=== PATIENT | male | born 1940 | race African-American/Black ===

== ENCOUNTER 2017-12-03 07:37 | Emergency (ER) | payer OTHER ==
[~2017-12-03] VITALS: Ht 182.9 cm; Wt 111.0 kg
[2017-12-03 07:56] VITALS: BP 171/74
[2017-12-03] MEDS ORDERED: KETOROLAC 60MG/2ML VIAL IM ONE (08:30)
== END 2017-12-03 09:19 | disposition home or self-care (01) ==
LOC: ER 08:50
DX: M54.42 Lumbago with sciatica, left side (principal); E11.9 Type 2 diabetes mellitus without complications; I10 Essential (primary) hypertension; W01.0XXA Fall on same level from slipping, tripping and stumbling without subsequent striking against object, initial encounter; Y93.89 Activity, other specified; Y92.89 Other specified places as the place of occurrence of the external cause; Y99.8 Other external cause status
CPT/HCPCS: 96372; 99283; J1885

== ENCOUNTER 2021-11-21 03:56 | Emergency (ER) | payer OTHER ==
[~2021-11-21] VITALS: Ht 182.9 cm; Wt 90.0 kg
[2021-11-21] MEDS ORDERED: OXYCODONE HCL/ACETAMINOPHEN 5/325MG TABLET PO ONE (06:45)
[2021-11-21 07:15] VITALS: BP 146/74
[2021-11-21 07:38] LABS: BASOPHILS % 0.6 % (0.0-2.0); EOSINOPHILS % 0.5 % (0.0-5.0); HEMATOCRIT. 49.9 % (42.0-52.0); HEMOGLOBIN. 16.4 g/dL (14.0-18.0); LYMPHOCYTES % 28.4 % (20.0-50.0); MEAN CORPUSCULAR HEMOGLOBIN 27.5 pg (28.0-32.0); MONOCYTES % 5.9 % (2.0-8.0); NEUTROPHILS % 64.6 % (40.0-76.0); RED BLOOD CELL COUNT 5.94 mill/uL (4.7-6.1); RED CELL DISTRIBUTION WIDTH 14.2 % (11.6-14.6)
[2021-11-21 07:44] LABS: CHLORIDE 108 mEq/L (98-107)
[2021-11-21 08:10] LABS: PLATELET 293 x1000/uL (130-400)
[2021-11-21] MEDS ORDERED: ASPIRIN 325MG EC TABLET PO ONE (10:45)
[2021-11-21] MEDS ORDERED: POTASSIUM CHLORIDE 20MEQ TABLET SR PO ONE (13:30)
== END 2021-11-21 14:35 | disposition short-term general hospital (02) ==
LOC: ER 03:56
DX: R06.02 Shortness of breath (principal); E11.9 Type 2 diabetes mellitus without complications; I10 Essential (primary) hypertension; Z86.73 Personal history of transient ischemic attack (TIA), and cerebral infarction without residual deficits; Z20.822 Contact with and (suspected) exposure to COVID-19
CPT/HCPCS: 36415; 71045; 80053; 82962; 83880; 84484; 85025; 87426; 93005; 99285; C9803

== ENCOUNTER 2023-11-12 05:03 | Inpatient (IN) | payer MEDICARE, OTHER ==
[~2023-11-12] VITALS: Ht 172.7 cm; Wt 71.9 kg
[2023-11-12 06:42] LABS: HEMATOCRIT. 42.7 % (42.0-52.0); HEMOGLOBIN. 12.6 g/dL (14.0-18.0); MEAN CORPUSCULAR HGB CONC 29.4 g/dL (31.0-37.0); MEAN CORPUSCULAR VOLUME 91.9 fL (80.0-94.0); MEAN PLATELET VOLUME 8.5 fl (7.4-10.4); PLATELET 422 x1000/uL (130-400); RED BLOOD CELL COUNT 4.65 mill/uL (4.7-6.1); RED CELL DISTRIBUTION WIDTH 17.9 % (11.6-14.6); WHITE BLOOD COUNT 14.5 x1000/uL (4.5-11.0)
[2023-11-12 06:56] LABS: CHLORIDE 107 mEq/L (98-107); POTASSIUM 4.1 mEq/L (3.5-5.1); SODIUM 147 mEq/L (136-145)
[2023-11-12 06:57] LABS: CALCIUM 9.7 mg/dL (8.7-10.4); CARBON DIOXIDE 18 mEq/L (21-32)
[2023-11-12 07:02] LABS: CREATININE 1.3 mg/dL (0.6-1.3); GLUCOSE 173 mg/dL (70-105); UREA NITROGEN BLOOD 21 mg/dL (9-23)
[2023-11-12] MEDS: SODIUM CHLORIDE 0.9% 1000ML BAG (SEPSIS BOLUS) IV ONE (07:03)
[2023-11-12 07:04] LABS: ALANINE AMINOTRANSFERASE 12 IU/L (10-49); ALBUMIN 3.9 g/dL (3.2-4.8); ASPARTATE AMINOTRANSFERASE 14 IU/L (<34); BILIRUBIN DIRECT 0.2 mg/dL (<=3.0); BILIRUBIN TOTAL 0.6 mg/dL (0.1-1.0); PROTEIN TOTAL 7.2 g/dL (6.0-8.3)
[2023-11-12 07:05] LABS: DIFFERENTIAL COMMENT 1
[2023-11-12] MEDS: PIPERACILLIN/TAZO 3.375G/50ML 50 ML IV STA (07:10)
[2023-11-12 07:19] LABS: TROPONIN I HIGH SENSITIVITY 59 ng/L (3.0-53)
[2023-11-12 07:20] LABS: PROTHROMBIN TIME 10.9 sec (9.6-11.0)
[2023-11-12 08:21] LABS: ANISOCYTOSIS 1+; PLATELET ESTIMATE INCREASED
[2023-11-12 08:27] LABS: CLARITY URINE TURBID (CLEAR); COLOR URINE YELLOW (YELLOW); GLUCOSE URINE 3+ (NEGATIVE); KETONES URINE 1+ (NEGATIVE); LEUKOCYTE ESTERASE URINE 2+ (NEGATIVE); NITRITE URINE NEGATIVE (NEGATIVE); OCCULT BLOOD URINE 3+ (NEGATIVE); PH URINE 5.5 (4.5-8.0); PROTEIN URINE 3+ (NEGATIVE); SPECIFIC GRAVITY URINE 1.025 (1.005-1.030); UROBILINOGEN URINE 0.2 E.U./dL (0.2-1.0)
[2023-11-12 09:09] LABS: WBC URINE TNTC /hpf (0-2)
[2023-11-12 09:10] LABS: SQUAMOUS EPITHELIAL CELL URINE NONE SEEN /lpf (RARE/1+)
[2023-11-12 09:11] LABS: BACTERIA URINE 3+; RBC URINE 0-2 /hpf (0-2); YEAST URINE 4+
[2023-11-12] MEDS ORDERED: CEFP200T13 MT (11:40)
[2023-11-12] MEDS ORDERED: DOXY100C5 MT (11:40)
[2023-11-12] MEDS ORDERED: ACETAMINOPHEN 325MG TABLET PO PRN (12:15)
[2023-11-12] MEDS ORDERED: ONDANSETRON HCL 4MG/2ML INJ IV PRN (12:15)
[2023-11-12] MEDS ORDERED: MAGNESIUM/ALUMINUM HYDROXIDE/SIMETHICONE 30ML UDC PO PRN (12:15)
[2023-11-12] MEDS ORDERED: DOCUSATE SODIUM 100MG CAPSULE PO PRN (12:15)
[2023-11-12] MEDS ORDERED: DEXTROSE 50% WATER 50ML SYRINGE IV PRN ×2 (12:15→18:00)
[2023-11-12] MEDS ORDERED: IPRATROPIUM/ALBUTEROL 0.5-3(2.5)MG/3ML NEB HHN PRN (12:15)
[2023-11-12] MEDS ORDERED: GUAIFENESIN 200MG/10ML SUGAR FREE UDC PO PRN (12:15)
[2023-11-12] MEDS ORDERED: ENOXAPARIN 40MG/0.4ML SYR SUBCUT SCH (13:00)
[2023-11-12] MEDS ORDERED: ATOR40TA70 (13:07)
[2023-11-12] MEDS ORDERED: ASPI-1406 (13:07)
[2023-11-12] MEDS ORDERED: AMLO10TA80 (13:07)
[2023-11-12 13:10] LABS: BG BASE EXCESS -6.7 mmol/L (-2.0-2.0); BG CARBOXYHEMOGLOBIN 0.4 % (0.5-1.5); BG FRACTION INSPIRED OXYGEN 34; BG HCO3 ACT 16.1 mmol/L (22.0-26.0); BG METHEMOGLOBIN 0.1 % (0.0-1.5); BG OXYHEMOGLOBIN 95.5 % (94.0-97.0); BG PCO2 25.7 mmHg (35.0-45.0); BG PH 7.416 (7.350-7.450); BG PO2 82.3 mmHg (75.0-100.0); BG SAMPLE SITE RIGHT RADIAL; BG TOTAL HEMOGLOBIN 13.2 g/dL (12.0-18.0); BG VENT MODE NASAL CANNULA
[2023-11-12] MEDS ORDERED: NALOXONE HCL 0.4MG/ML VIAL IV PRN (14:00)
[2023-11-12] MEDS: FLUCONAZOLE 200 MG/100ML BAG 100 ML IV NR (14:12)
[2023-11-12] MEDS: PANTOPRAZOLE SODIUM 40 MG/VIAL IV SCH (14:12)
[2023-11-12] MEDS: DEXT 5%/0.45% NACL 1000ML 1,000 ML IV ONE (14:12)
[2023-11-12] MEDS: ASPIRIN 81MG EC TABLET PO NR (14:29)
[2023-11-12] MEDS: ENOXAPARIN 80MG/0.8ML SYR SUBCUT SCH (14:29)
[2023-11-12] MEDS: VANCOMYCIN 1.5GM/250ML IV NR (16:01)
[2023-11-12] MEDS: PIPERACILLIN/TAZO 3.375G/50ML 50 ML IV SCH (16:31)
[2023-11-12] MEDS: SODIUM CHLORIDE 0.45% 1,000 ML IV SCH (16:31)
[2023-11-12 16:39] LABS: CHLORIDE 108 mEq/L (98-107); POTASSIUM 4.3 mEq/L (3.5-5.1); SODIUM 149 mEq/L (136-145)
[2023-11-12 16:40] LABS: CALCIUM 9.8 mg/dL (8.7-10.4); CARBON DIOXIDE 18 mEq/L (21-32)
[2023-11-12 16:45] LABS: CREATININE 1.2 mg/dL (0.6-1.3); GLUCOSE 213 mg/dL (70-105); UREA NITROGEN BLOOD 22 mg/dL (9-23)
[2023-11-12 16:47] LABS: CREATINE KINASE 43 IU/L (46-171)
[2023-11-12 16:53] LABS: BETA HYDROXYBUTYRATE 9.7 mMol/L (0.0-0.3)
[2023-11-12 16:59] LABS: TROPONIN I HIGH SENSITIVITY 67 ng/L (3.0-53)
[2023-11-12] MEDS ORDERED: SODIUM CHLORIDE 0.45% 1,000 ML IV SCH (18:00)
[2023-11-12] MEDS ORDERED: KCL 20MEQ/100ML PREMIX 100 ML IV PRN (18:00)
[2023-11-12] MEDS ORDERED: BLOOD SUGAR DIAGNOSTIC STRIP TEST PRN (18:00)
[2023-11-12] MEDS ORDERED: INSULIN LISPRO 100 UNITS/ML SUBCUT SCH (18:00)
[2023-11-12] MEDS ORDERED: POTASSIUM CHLORIDE 40 MEQ in SODIUM CHLORIDE 0.9% 230 ML IV PRN (18:00)
[2023-11-12] MEDS ORDERED: INSULIN REGULAR (HUMULIN R) 1000UNITS/10ML VIAL IV NR (18:00)
[2023-11-12] MEDS: METOPROLOL TARTRATE 25MG TABLET PO SCH (19:42)
[2023-11-12] MEDS: ATORVASTATIN CALCIUM 40MG TABLET PEG NR (19:42)
[2023-11-12 21:00] VITALS: BP 156/64; PULSE 75; RESP 17; TEMP 98.1
[2023-11-12] MEDS: BLOOD SUGAR DIAGNOSTIC STRIP TEST SCH (21:04)
[2023-11-12] MEDS: DEXT 5%/0.9% NACL 1,000 ML IV SCH (21:28)
[2023-11-12] MEDS: INSULIN REGULAR 100U/100ML PMX 100 ML IV SCH (21:28)
[2023-11-12 22:00] VITALS: BP 147/67; PULSE 89; RESP 20
[2023-11-12 22:21] LABS: CARBON DIOXIDE 17 mEq/L (21-32); CHLORIDE 109 mEq/L (98-107); POTASSIUM 4.1 mEq/L (3.5-5.1); SODIUM 148 mEq/L (136-145)
[2023-11-12 22:22] LABS: CALCIUM 9.7 mg/dL (8.7-10.4)
[2023-11-12 22:27] LABS: CREATININE 1.2 mg/dL (0.6-1.3); GLUCOSE 208 mg/dL (70-105); UREA NITROGEN BLOOD 21 mg/dL (9-23)
[2023-11-12 22:29] LABS: CREATINE KINASE 200 IU/L (46-171); PHOSPHORUS 3.6 mg/dL (2.5-4.9)
[2023-11-12 22:34] LABS: TROPONIN I HIGH SENSITIVITY 73 ng/L (3.0-53)
[2023-11-12 22:58] LABS: *AMPHETAMINES SCREEN URINE NEGATIVE (NEGATIVE)
[2023-11-12 22:59] LABS: *BARBITURATES SCREEN URINE NEGATIVE (NEGATIVE); *BENZODIAZEPINES SCREEN URINE NEGATIVE (NEGATIVE); *COCAINE SCREEN URINE NEGATIVE (NEGATIVE); CANNABINOID URINE SCREEN NEGATIVE (NEGATIVE); ECSTASY MDMA SCREEN URINE NEGATIVE (NEGATIVE); METHADONE URINE SCREEN NEGATIVE (NEGATIVE); OPIATES URINE SCREEN PRESUMPTIVE POSITIVE (NEGATIVE); PHENCYCLIDINE URINE SCREEN NEGATIVE (NEGATIVE)
[2023-11-12 23:00] VITALS: BP 146/59; PULSE 94; RESP 18
[2023-11-13] VITALS (33 sets, daily range): BP systolic 104–156; BP diastolic 44–76; PULSE 75–113; RESP 17–26; TEMP 97.6–98.4
[2023-11-13 02:52] LABS: CHLORIDE 114 mEq/L (98-107); POTASSIUM 3.1 mEq/L (3.5-5.1); SODIUM 151 mEq/L (136-145)
[2023-11-13 02:53] LABS: CARBON DIOXIDE 23 mEq/L (21-32)
[2023-11-13 03:00] LABS: PHOSPHORUS 1.9 mg/dL (2.5-4.9)
[2023-11-13] MEDS: POTASSIUM CHLORIDE 40 MEQ in DEXT 5% WATER 230 ML IV PRN (04:05)
[2023-11-13] MEDS: SODIUM PHOSPHATE 15 MMOL in SODIUM CHLORIDE 0.9% 245 ML IV PRN (04:34)
[2023-11-13] MEDS ORDERED: METOPROLOL TARTRATE 5MG/5ML VIAL IV PRN (08:30)
[2023-11-13 10:06] LABS: CARBON DIOXIDE 23 mEq/L (21-32); CHLORIDE 114 mEq/L (98-107); POTASSIUM 3.5 mEq/L (3.5-5.1); SODIUM 151 mEq/L (136-145)
[2023-11-13 10:07] LABS: CALCIUM 8.9 mg/dL (8.7-10.4)
[2023-11-13 10:11] LABS: CREATININE 1.2 mg/dL (0.6-1.3); GLUCOSE 176 mg/dL (70-105)
[2023-11-13 10:12] LABS: LDL CHOLESTEROL 47 mg/dL (5-100); TRIGLYCERIDE 103 mg/dL (0-150); UREA NITROGEN BLOOD 19 mg/dL (9-23)
[2023-11-13 10:13] LABS: CHOLESTEROL 135 mg/dL (<200); HDL CHOLESTEROL 54 mg/dL (>55)
[2023-11-13 10:14] LABS: PHOSPHORUS 2.6 mg/dL (2.5-4.9)
[2023-11-13] MEDS: DEXT 5%/0.45% NACL 1000ML 1,000 ML IV SCH (12:30)
[2023-11-13 12:44] LABS: CHLORIDE 114 mEq/L (98-107); POTASSIUM 4.1 mEq/L (3.5-5.1); SODIUM 150 mEq/L (136-145)
[2023-11-13 12:45] LABS: CALCIUM 8.5 mg/dL (8.7-10.4); CARBON DIOXIDE 24 mEq/L (21-32)
[2023-11-13 12:50] LABS: CREATININE 1.2 mg/dL (0.6-1.3); GLUCOSE 187 mg/dL (70-105); UREA NITROGEN BLOOD 20 mg/dL (9-23)
[2023-11-13 12:52] LABS: PHOSPHORUS 3.2 mg/dL (2.5-4.9)
[2023-11-13] MEDS ORDERED: DEXTROSE 50% WATER 50ML SYRINGE IV PRN (14:15)
[2023-11-13] MEDS: MAGNESIUM 2 G PREMIX 50 ML IV PRN (14:18)
[2023-11-13] MEDS: INSULIN GLARGINE 100 UNITS/ML SUBCUT NR (14:20)
[2023-11-13] MEDS: MAGNESIUM 1 G PREMIX 100 ML IV NR (14:26)
[2023-11-13] MEDS ORDERED: MORPHINE SULFATE 10MG/5ML ORAL SOLN UDC PO PRN (15:30)
[2023-11-13] MEDS ORDERED: LORAZEPAM 0.5MG TABLET PO PRN (15:30)
[2023-11-13] MEDS: VANCOMYCIN 1GM/200ML PMX (BAXTER) IV SCH (16:00)
[2023-11-13] MEDS: BLOOD SUGAR DIAGNOSTIC STRIP TEST SCH ×4 (17:19→21:04)
[2023-11-13] MEDS: INSULIN LISPRO 100 UNITS/ML SUBCUT SCH (17:34)
[2023-11-13 18:26] LABS: ALBUMIN 3.1 g/dL (3.2-4.8)
[2023-11-13 18:47] LABS: PREALBUMIN < 5.0 mg/dl (10.0-40.0)
[2023-11-13] MEDS: INSULIN GLARGINE 100 UNITS/ML SUBCUT SCH (21:11)
[2023-11-14] VITALS (37 sets, daily range): BP systolic 97–143; BP diastolic 48–120; PULSE 78–110; RESP 11–27; TEMP 97.8–99.3; O2SAT 95
[2023-11-14 05:45] LABS: HEMATOCRIT 35.1 % (42.0-52.0); HEMOGLOBIN 10.7 g/dL (14.0-18.0); MEAN CORPUSCULAR HGB CONC 30.6 g/dL (31.0-37.0); MEAN CORPUSCULAR VOLUME 88.1 fL (80.0-94.0); PLATELET 326 x1000/uL (130-400); RED BLOOD CELL COUNT 3.98 mill/uL (4.7-6.1); RED CELL DISTRIBUTION WIDTH 17.8 % (11.6-14.6); WHITE BLOOD COUNT 19.1 x1000/uL (4.5-11.0)
[2023-11-14 05:51] LABS: CHLORIDE 113 mEq/L (98-107); POTASSIUM 4.5 mEq/L (3.5-5.1); SODIUM 150 mEq/L (136-145)
[2023-11-14 05:52] LABS: CALCIUM 8.7 mg/dL (8.7-10.4); CARBON DIOXIDE 25 mEq/L (21-32)
[2023-11-14 05:57] LABS: CREATININE 1.1 mg/dL (0.6-1.3); GLUCOSE 129 mg/dL (70-105); UREA NITROGEN BLOOD 18 mg/dL (9-23)
[2023-11-14 05:59] LABS: PHOSPHORUS 2.2 mg/dL (2.5-4.9)
[2023-11-14] MEDS ORDERED: POTASSIUM PHOSPHATE 15 MMOL in DEXT 5% WATER 245 ML IV ONE (08:00)
[2023-11-14] MEDS: LIDOCAINE 5% PATCH TOP SCH (08:40)
[2023-11-14] MEDS: PREDNISONE 10MG TABLET PO SCH (08:40)
[2023-11-14] MEDS: AMLODIPINE 10MG TABLET PO SCH (08:41)
[2023-11-14] MEDS: POTASSIUM PHOSPHATE 15 MMOL in DEXT 5% WATER 245 ML IV NR (10:53)
[2023-11-14] MEDS: OXYCODONE HCL/ACETAMINOPHEN 5/325MG TABLET PO PRN (13:15)
[2023-11-14] MEDS: SODIUM HYPOCHLORITE 0.125% 473ML SOLUTION TOP SCH (15:11)
[2023-11-14] MEDS: IPRATROPIUM/ALBUTEROL 0.5-3(2.5)MG/3ML NEB HHN SCH (21:05)
[2023-11-15] VITALS (34 sets, daily range): BP systolic 110–160; BP diastolic 54–88; PULSE 74–112; RESP 11–29; TEMP 97.4–98.6; O2SAT 95–99
[2023-11-15] MEDS: ACETYLCYSTEINE 200MG/ML 20% VIAL 4ML INH SCH (00:35)
[2023-11-15 07:55] LABS: CHLORIDE 113 mEq/L (98-107); POTASSIUM 3.3 mEq/L (3.5-5.1); SODIUM 147 mEq/L (136-145)
[2023-11-15 07:56] LABS: BASOPHILS % 0.3 % (0.0-2.0); CALCIUM 8.4 mg/dL (8.7-10.4); CARBON DIOXIDE 26 mEq/L (21-32); HEMATOCRIT. 32.5 % (42.0-52.0); MEAN CORPUSCULAR HEMOGLOBIN 26.5 pg (28.0-32.0); MEAN CORPUSCULAR HGB CONC 30.6 g/dL (31.0-37.0); MEAN CORPUSCULAR VOLUME 86.5 fL (80.0-94.0); MEAN PLATELET VOLUME 8.8 fl (7.4-10.4); MONOCYTES % 1.8 % (2.0-8.0); NEUTROPHILS % 88.9 % (40.0-76.0); PLATELET 334 x1000/uL (130-400); RED BLOOD CELL COUNT 3.76 mill/uL (4.7-6.1); RED CELL DISTRIBUTION WIDTH 17.2 % (11.6-14.6); WHITE BLOOD COUNT 14.5 x1000/uL (4.5-11.0)
[2023-11-15 08:01] LABS: CREATININE 0.8 mg/dL (0.6-1.3); GLUCOSE 134 mg/dL (70-105); UREA NITROGEN BLOOD 17 mg/dL (9-23)
[2023-11-15] MEDS: ACETAMINOPHEN 325MG TABLET PO PRN (08:41)
[2023-11-15] MEDS ORDERED: POTASSIUM CHLORIDE 40 MEQ in DEXT 5% WATER 230 ML IV ONE (08:45)
[2023-11-15] MEDS: KCL 20MEQ/100ML X 2 FOR TOTAL KCL 40MEQ/200ML IV SCH (09:18)
[2023-11-15] MEDS: METOPROLOL TARTRATE 25MG TABLET PO SCH (10:19)
[2023-11-16] VITALS (10 sets, daily range): BP systolic 118–145; BP diastolic 69–114; PULSE 61–102; RESP 14–27; TEMP 98.2–98.5; O2SAT 97–99
[2023-11-16] MEDS: CLONIDINE 0.1MG TABLET PO PRN (00:31)
[2023-11-16 09:31] LABS: HEMATOCRIT 30.1 % (42.0-52.0); HEMOGLOBIN 9.6 g/dL (14.0-18.0); MEAN CORPUSCULAR HEMOGLOBIN 27.1 pg (28.0-32.0); MEAN CORPUSCULAR HGB CONC 31.8 g/dL (31.0-37.0); MEAN CORPUSCULAR VOLUME 85.1 fL (80.0-94.0); PLATELET 342 x1000/uL (130-400); RED BLOOD CELL COUNT 3.54 mill/uL (4.7-6.1); WHITE BLOOD COUNT 7.8 x1000/uL (4.5-11.0)
[2023-11-16 09:40] LABS: CHLORIDE 112 mEq/L (98-107); POTASSIUM 3.5 mEq/L (3.5-5.1); SODIUM 147 mEq/L (136-145)
[2023-11-16 09:41] LABS: CALCIUM 8.6 mg/dL (8.7-10.4); CARBON DIOXIDE 30 mEq/L (21-32)
[2023-11-16 09:46] LABS: CREATININE 0.6 mg/dL (0.6-1.3); GLUCOSE 195 mg/dL (70-105)
[2023-11-16 09:47] LABS: UREA NITROGEN BLOOD 16 mg/dL (9-23)
[2023-11-16] MEDS ORDERED: LEVO250T74 PO (11:48)
[2023-11-17] VITALS (8 sets, daily range): BP systolic 124–138; BP diastolic 61–77; PULSE 72–97; RESP 16–20; TEMP 98.1–98.6; O2SAT 98
== END 2023-11-17 20:00 | disposition hospice, home (50) | DRG 853 ==
LOC: ER 05:03 → EDBEDREQ 11:46 → EDBEDREQTM 11:46 → 5WST 15:57 → CVICU 19:59 → 3WST 11-15 19:09
PROVIDERS: ADMIT Hospitalist; ATTEND Hospitalist
PROC: 06HY33Z Insertion of Infusion Device into Lower Vein, Percutaneous Approach (ICD-10-PCS; principal; 2023-11-13)
PROC: 0JB70ZZ Excision of Back Subcutaneous Tissue and Fascia, Open Approach (ICD-10-PCS; 2023-11-14)
DX: A41.9 Sepsis, unspecified organism (principal); E11.10 Type 2 diabetes mellitus with ketoacidosis without coma; G93.41 Metabolic encephalopathy; J96.01 Acute respiratory failure with hypoxia; I21.4 Non-ST elevation (NSTEMI) myocardial infarction; L89.154 Pressure ulcer of sacral region, stage 4; E87.0 Hyperosmolality and hypernatremia; E46 Unspecified protein-calorie malnutrition; N39.0 Urinary tract infection, site not specified; E87.3 Alkalosis; R65.20 Severe sepsis without septic shock; Z20.822 Contact with and (suspected) exposure to COVID-19; Z68.24 Body mass index [BMI] 24.0-24.9, adult; Z66 Do not resuscitate; I10 Essential (primary) hypertension; D64.9 Anemia, unspecified; E83.39 Other disorders of phosphorus metabolism; E87.6 Hypokalemia; T50.995A Adverse effect of other drugs, medicaments and biological substances, initial encounter; I25.10 Atherosclerotic heart disease of native coronary artery without angina pectoris; I45.10 Unspecified right bundle-branch block; I48.91 Unspecified atrial fibrillation; Z51.5 Encounter for palliative care; Z86.73 Personal history of transient ischemic attack (TIA), and cerebral infarction without residual deficits; Z95.1 Presence of aortocoronary bypass graft; Z93.1 Gastrostomy status; Z74.01 Bed confinement status; Z85.46 Personal history of malignant neoplasm of prostate; Z79.899 Other long term (current) drug therapy; Y92.89 Other specified places as the place of occurrence of the external cause
CPT/HCPCS: 36415; 36600; 71045; 80048; 80051; 80061; 80076; 80305; 81003; 82010; 82040; 82375; 82550; 82805; 82962; 83036; 83605; 83735; 83880; 83930; 84100; 84134; 84145; 84153; 84484; 85025; 85027; 85379; 87077; 87106; 87186; 87426; 93005; 93970; 94640; 97162; 97166; 99291; A6261; C1893; J1450; J1650; J1815; J2470; J2543; J3370; J3475; J3480; J3490; J7030; J7042; J7050; J7060; J7512; J7608